=== PATIENT | female | born 1970 | race African-American/Black ===

== ENCOUNTER 2016-11-08 18:05 | Emergency (ER) | payer OTHER ==
--- NOTE | ~2016-11-08 | CR63 ---
[facility] A Service of [facility] RADIOLOGY TEXT RESULTS PATIENT: ESTUARDO CORTEZ LOCATION: SED : 72 UNIT #: [id number] AGE: [address]: Ivette Wilde MD SEX: F ORDER DR: [id number] [place] [id number] E MR#: [id number] Acc #: [id number] NAME: ESTUARDO CORTEZ : 1970 SEX: F STUDY DATE/TIME: 11/08/2016 17:53 UNIT: SED ROOM: STUDY DESCRIPTION: CR Chest 2 View Attending Physician: Ivette Wilde M.D. Ordering Physician: Ivette Wilde M.D. Primary Care Physician: Valerie Bush M.D. MEDICAL IMAGING REPORT This report is preliminary unless electronic signature is present. EXAM Two views chest, 11/08/2016 HISTORY Cough, congestion, blood in mucous with cough for 2 days. History of CHF, hypertension and diabetes. COMMENT 2 views chest reviewed. 3 films submitted. Film is limited by patient's obesity and difficulty cooperating. There is no pleural effusion. Heart size is borderline. No acute congestive failure or pneumothorax. Some mild thickening of the peribronchovascular soft tissues of the lower lungs could reflect some changes of bronchitis. This is better than on prior study. IMPRESSION Suspect some changes of bronchitis or asthma, but no acute-appearing parenchymal infiltrate no acute congestive failure. Mild cardiac enlargement likely. Dictated by... Ada Farias M.D. THIS IS AN ELECTRONICALLY VERIFIED REPORT Ada Farias M.D. at 11/12/2016 12:18 PM IBAN/sidra TD: 11/09/2016 22:57 JOB #: [id number] [facility] A Service of [facility] RADIOLOGY TEXT RESULTS PATIENT: ESTUARDO CORTEZ LOCATION: SED : 72 UNIT #: [id number] AGE: [address]: Ivette Wilde MD SEX: F ORDER DR: MEDICAL IMAGING REPORT Page 1 of 1
[~2016-11-08 18:05] MED LIST: ADVIL200 M1 PO; ALDACTONE25 MG PO; ASPIRIN81 MG PO; AUGMENTIN875 MG PO; COLACE PO; COREG; COREG3.125 MG PO; FLEXERIL10 MG PO; FUROSEMIDE40 MG PO; HYDROCHLOROTHIA25 MG PO; K-DUR20 ME1; K-DUR20 ME2 PO; LANTUS SOLOSTAR3 ML SUBQ; LASIX; LISINOPRIL10 MG PO; LISINOPRIL5 MG PO; LORTAB 5/500 TA1 TA1 PO; LORTAB 7.51 TAB PO; MILK OF MAGNESIA PO; NORMODYNE; NOVOLIN 70100 UNITS/; NOVOLOG100 U/M2 SQ; PRINIVIL5 MG; PROTONIX PO; [UNRECOGNIZED DRUG - REMARK]
== END 2016-11-08 18:30 | disposition home or self-care (01) ==
LOC: SED 18:05
DX: J20.9 Acute bronchitis, unspecified (principal); E11.9 Type 2 diabetes mellitus without complications; I11.0 Hypertensive heart disease with heart failure; I50.9 Heart failure, unspecified; Z90.49 Acquired absence of other specified parts of digestive tract
CPT/HCPCS: 71020; 99282; 99283